=== PATIENT | female | born 1970 | race Caucasian/White ===

== ENCOUNTER 2024-08-10 06:55 | Day surgery (SDC) | payer OTHER, BC ==
[~2024-08-10 06:55] MED LIST: Sodium Chloride 0.9% 10 ML Syringe FLUSH PRN; Sodium Chloride 0.9% 10 ML Syringe FLUSH SCH
[2024-08-10] MEDS: Lactated Ringers 1,000 ML IV SCH (07:15)
[2024-08-10] MEDS ORDERED: propofoL 500 MG/50 ML 50 ML ONE (07:34)
[2024-08-10] MEDS ORDERED: Ondansetron 4 MG/2 ML SDV ONE (07:36)
== END 2024-08-10 09:30 | disposition home or self-care (01) ==
LOC: JD.SDS 06:55
PROVIDERS: ATTEND Surgery
DX: Z12.11 Encounter for screening for malignant neoplasm of colon (principal); D12.2 Benign neoplasm of ascending colon; D12.3 Benign neoplasm of transverse colon; D12.8 Benign neoplasm of rectum; R19.5 Other fecal abnormalities; E66.9 Obesity, unspecified; Z88.8 Allergy status to other drugs, medicaments and biological substances; Z88.0 Allergy status to penicillin; Z88.2 Allergy status to sulfonamides; Z68.31 Body mass index [BMI] 31.0-31.9, adult; Z79.899 Other long term (current) drug therapy; Z87.891 Personal history of nicotine dependence; Z86.0100 Personal history of colon polyps, unspecified
CPT/HCPCS: 45380; 45381; 45385; J2405; J2704; J7120; 00811